=== PATIENT | female | born 1995 | race American Indian/Alaskan Native ===

== ENCOUNTER 2018-02-26 10:38 | Emergency (ER) | payer MEDICAID ==
[2018-02-26 11:18] VITALS: PULSE 86; RESP 18; TEMP 98; O2SAT 98
[2018-02-26 11:18] LABS: BASO % 0.2 % (0.0-2.0); EOS # 0.1 K/uL (0.0-0.7); EOS % 0.9 % (0.0-4.0); HEMOGLOBIN 11.5 g/dL (11.0-16.0); LYMPH # 1.5 K/uL (1.0-4.3); MEAN CELL VOLUME 84.1 fL (81.0-99.0); MEAN CORPUSCULAR HEMOGLOBIN 27.5 pg (27.0-31.0); MEAN CORPUSCULAR HGB CONC 32.7 g/dL (33.0-37.0); MEAN PLATELET VOLUME 8.2 fL (7.2-11.7); MONO # 0.8 K/uL (0.0-0.8); MONO % 10.9 % (0.0-10.0); NEUT # 5.1 K/uL (1.8-7.0); RBC 4.18 Mil/uL (3.80-5.20); RED CELL DISTRIBUTION WIDTH 14.6 % (11.5-14.5); WHITE BLOOD COUNT 7.5 K/uL (4.8-10.8)
--- NOTE | 2018-02-26 11:34 | C.PDOC ---
History Of Present Illness 22 y/o female, , presents to the ER complaining of lower abdominal cramping which has been present since 9 am today. Patient states that her LMP was on 01/13. Patient denies having nausea, vomiting, diarrhea, dysuria, vaginal bleeding , fever, and chills. Time Seen by Provider: 02/26/18 10:43 Chief Complaint (Nursing): Abdominal Pain History Per: Patient History/Exam Limitations: no limitations Onset/Duration Of Symptoms: Hrs Current Symptoms Are (Timing): Still Present Severity: Moderate Past Medical History Reviewed: Historical Data, Nursing Documentation, Vital Signs Vital Signs: Last Vital Signs Temp 98 F 02/26/18 10:46 Pulse 86 02/26/18 10:46 Resp 18 02/26/18 10:46 BP 128/78 02/26/18 10:46 Pulse Ox 98 02/26/18 11:39 - Medical History PMH: No Chronic Diseases Surgical History: No Surg Hx Family History: States: No Known Family Hx - Social History Hx Alcohol Use: No Hx Substance Use: No - Immunization History Hx Tetanus Toxoid Vaccination: No Review Of Systems Except As Marked, All Systems Reviewed And Found Negative. Constitutional: Negative for: Fever, Chills Gastrointestinal: Positive for: Other (abdominal cramping). Negative for: Nausea, Vomiting, Diarrhea Genitourinary: Negative for: Vaginal Bleeding Physical Exam - Physical Exam Appears: Non-toxic, No Acute Distress Skin: Normal Color, Warm, Dry Head: Atraumatic, Normacephalic Eye(s): bilateral: Normal Inspection Nose: Normal Oral Mucosa: Moist Neck: Supple Chest: Symmetrical Cardiovascular: Rhythm Regular Respiratory: Normal Breath Sounds, No Rales, No Rhonchi, No Wheezing Gastrointestinal/Abdominal: Soft, Tenderness (mild suprapubic tenderness), No Guarding, No Rebound Neurological/Psych: Oriented x3, Normal Speech ED Course And Treatment - Laboratory Results Result Diagrams: 02/26/18 11:14 02/26/18 11:14 O2 Sat by Pulse Oximetry: 98 (RA) Pulse Ox Interpretation: Normal Medical Decision Making Medical Decision Making: Assessment: Abdominal Pain in Plan: --Labs --UA --US-Transvaginal 1343 - patient resting comfortably. ultrasound demonstrates no iup. Will discharge home to follow up with ob within 2 days Disposition Counseled Patient/Family Regarding: Studies Performed, Diagnosis, Need For Followup - Disposition Referrals: [facility] [Outside] [facility] [Outside] Disposition: HOME/ ROUTINE Disposition Time: 13:44 Condition: STABLE Additional Instructions: follow up with ob doctor or clnic within 2 days you need a repeat bhcg in 7-8 days your bhcg today is 171 call to make an appointment take medications as prescribed return to ER if symptoms worsens or progress Instructions: Threatened Miscarriage (DC) Forms: [employer] (Vincentian), General Discharge Instructions - Clinical Impression Clinical Impression: Abdominal pain affecting - Scribe Statement The provider has reviewed the documentation as recorded by the Prabhjotibe Silvio Dimas Provider Attestation: All medical record entries made by the Prabhjotibe were at my direction and personally dictated by me. I have reviewed the chart and agree that the record accurately reflects my personal performance of the history, physical exam, medical decision making, and the department course for this patient. I have also personally directed, reviewed, and agree with the discharge instructions and disposition.
[2018-02-26 11:59] LABS: SQUAMOUS EPITHIAL 9 /hpf (0-5); URINE BILIRUBIN NEGATIVE (NEGATIVE); URINE BLOOD 3+ (NEGATIVE); URINE CLARITY Hazy (Clear); URINE COLOR Yellow (YELLOW); URINE GLUCOSE (UA) NORMAL (Normal); URINE LEUKOCYTE ESTERASE TRACE Leu/uL (Negative); URINE PROTEIN NEGATIVE (NEGATIVE)
[2018-02-26 12:03] LABS: ALB/GLOB RATIO 1.3 (1.0-2.1); ALBUMIN 4.5 g/dL (3.5-5.0)
[2018-02-26 12:14] LABS: SPERM URINE FEW /hpf; URINE BACTERIA MOD (<OCC)
[2018-02-26 12:34] LABS: ALT/SGPT 28 U/L (9-52); AST/SGOT 21 U/L (14-36); BLOOD UREA NITROGEN 6 mg/dL (7-17); CALCIUM 9.5 mg/dl (8.6-10.4); GFR AFRICAN-AMERICAN > 60; GFR NON-AFRICAN AMERICAN > 60
--- NOTE | 2018-02-26 13:29 | US ---
PROCEDURE: OB Pelvic Ultrasound HISTORY: abd. cramping COMPARISON: None available. FINDINGS: UTERUS: Tiny intrauterine cystic structure, within the endometrial echo complex, 3 mm. This is out of range for determination age. Questionable early . Followup with serial beta HCG and transvaginal ultrasound is advised. No perigestational hemorrhage identified. No detectable pole. Uterus measures 8.0 x 3.6 x 5.0 cm. No mass CERVIX: Long and closed. No cervical abnormality seen. RIGHT OVARY: Measures 5.1 x 2.7 x 2.8 cm. No mass. Normal flow. Simple cyst, 2.8 x 1.7 x 2.2 cm, likely physiologic. LEFT OVARY: Measures 3.2 x 2.3 x 2.1 cm. No mass. Normal flow. FREE FLUID: Trace right adnexal fluid. OTHER FINDINGS: None. IMPRESSION: Tiny intrauterine cystic structure, possible early intrauterine gestation. Followup with serial beta HCG and transvaginal pelvic ultrasound advised. Incidental 2.8 cm right ovarian simple cyst, likely physiologic.
[2018-02-26 14:10] VITALS: BP 136/72
== END 2018-02-26 14:10 | disposition home or self-care (01) ==
LOC: C.ER 10:38
DX: O26.899 Other specified pregnancy related conditions, unspecified trimester (principal); R10.9 Unspecified abdominal pain

== ENCOUNTER 2018-03-05 15:03 | Emergency (ER) | payer MEDICAID ==
[2018-03-05 15:08] VITALS: BMI 22.6
[2018-03-05 15:11] VITALS: PULSE 92; RESP 18; TEMP 98.2; O2SAT 100
--- NOTE | 2018-03-05 15:42 | C.PDOC ---
History Of Present Illness 22 years old female presents to ED for evaluation of trip and fall and for ultrasound to date . Patient states she was on her way to hospital for her second ultrasound and tripped on uneven pavement. Patient now complains of right foot pain. Patient's LNMP was 6/30. Denies any other physical complaints. Time Seen by Provider: 03/05/18 15:21 Chief Complaint (Nursing): Lower Extremity Problem/Injury History Per: Patient History/Exam Limitations: no limitations Onset/Duration Of Symptoms: Hrs Current Symptoms Are (Timing): Still Present Recent travel outside of the [place]: No - Ankle/Foot Description Of Injury: Fell Past Medical History Reviewed: Historical Data, Nursing Documentation, Vital Signs Vital Signs: Last Vital Signs Temp 98.2 F 03/05/18 18:10 Pulse 92 H 03/05/18 18:10 Resp 18 03/05/18 18:10 BP 116/82 03/05/18 18:10 Pulse Ox 100 03/05/18 18:50 - Medical History PMH: No Chronic Diseases Surgical History: No Surg Hx Family History: States: Unknown Family Hx - Social History Hx Alcohol Use: No Hx Substance Use: No - Immunization History Hx Tetanus Toxoid Vaccination: No Review Of Systems Constitutional: Negative for: Fever, Chills Gastrointestinal: Negative for: Nausea, Vomiting, Abdominal Pain, Diarrhea Genitourinary: Negative for: Vaginal Bleeding, Pelvic Pain Musculoskeletal: Positive for: Foot Pain (Right foot) Skin: Negative for: Rash Neurological: Negative for: Weakness, Numbness Physical Exam - Physical Exam Appears: Non-toxic, No Acute Distress Skin: Warm, Dry, No Rash Head: Atraumatic, Normacephalic Eye(s): bilateral: Normal Inspection, EOMI Oral Mucosa: Moist Neck: Normal ROM, Supple Chest: Symmetrical, No Tenderness Cardiovascular: Rhythm Regular, No Murmur Respiratory: Normal Breath Sounds, No Decreased Breath Sounds, No Rales, No Rhonchi, No Wheezing Gastrointestinal/Abdominal: Bowel Sounds (Active ), Soft, No Tenderness, No Guarding Extremity: Normal ROM, No Tenderness, No Deformity, No Swelling, Other ( Superficial abrasion of right lateral foot and distal medial tibial with mild tenderness to lateral aspect) Neurological/Psych: Oriented x3, Normal Speech Gait: Steady ED Course And Treatment O2 Sat by Pulse Oximetry: 100 (RA) Pulse Ox Interpretation: Normal - Other Rad Ankle X-Ray X-Ray: Viewed By Me, Read By Radiologist Interpretation: PROCEDURE: Right Ankle Radiographs. HISTORY: pain s.p trip and fall. COMPARISON: None available. FINDINGS: BONES: No acute displaced fracture. JOINTS: No dislocation. SOFT TISSUES: Unremarkable. No evidence of radiopaque foreign body. OTHER FINDINGS: None. IMPRESSION: No acute displaced fracture, dislocation, or significant joint effusion identified. If symptoms persist or if there is clinical concern, x-ray follow-up in 7-10 days should be considered. - CT Scan/US Abdomen/Pelvis US Other Rad Studies (CT/US): Read By Radiologist, Radiology Report Reviewed CT/US Interpretation: Indication: Pain status post trip and fall. Comparison: 1st trimester ultrasound performed 02/26/18. Technique: Real-time transabdominal pelvic ultrasound was performed. In addition a transvaginal pelvic ultrasound was necessary to better depict pelvic anatomy. Findings: The uterus measures approximately 6.9 x 3.1 x 3.8 cm. Anteverted. Endometrial stripe measures approximately 3 mm in diameter. No evidence of intrauterine gestational sac. Cervix length measures approximately 2.7 cm. The right ovary measures 2.4 x 1.9 x 2.7 cm and contains 1.1 x 0.8 x 0.6 cm septated/ complicated cyst. The left ovary measures 3.7 x 1.7 x 2.8 cm. Blood flow was demonstrated to both ovaries. Impression: No evidence of intrauterine gestational sac. No evidence of intrauterine gestational sac. If indeed the patient is based on serum beta HCG values, the sonographic findings represent either: Very early IUP; embryonic demise; ectopic gestation. Follow- up with serial quantitative serum beta HCG measurements and post OBGYN follow- up as clinically indicated, since ectopic gestation cannot be excluded based only on sonographic findings. 1.1 cm right ovarian complicated/septated cyst. Medical Decision Making Medical Decision Making: Impression: patient who fell Discuss risk of radiation with patient, and will shield patient to obtain ankle xray. Patient agreed and gave consent to perform Xray. Plan: Administered Tylenol. Ordered X-Ray of right ankle and OB transvaginal US. Prior records reviewed: patient seen in ED 02/26/18 had Bhcg of 171.5 and ultrasound demonstrates no iup Progress: Xray of ankle shows no fracture. US does not demonstrate any gestational sac. I discussed results with the patient. She denies any bleeding or pain. I explain this may demonstrate to early or possible miscarriage. Advise patient to follow up with OB. BHCg was not performed today, and patient did not wish to wait for result. Patient had stable vital signs upon discharge Disposition Counseled Patient/Family Regarding: Diagnosis, Need For Followup - Disposition [facility]] Disposition: HOME/ ROUTINE Disposition Time: 17:43 Condition: STABLE Additional Instructions: It is important that you follow up with your OB in few days to a week for further evaluation Your ultrasound does not show gestational sac, it may be too early to detect Instructions: Ankle Sprain (DC) Forms: [employer] ([place]) - POA Present On Arrival: None - Clinical Impression Clinical Impression: Ankle sprain, - PA / NETWORK SYSTEMS CONSULTANT / Resident Statement MD/DO has reviewed & agrees with the documentation as recorded. - Scribe Statement The provider has reviewed the documentation as recorded by the Prabhjotibjoselo Barrow All medical record entries made by the Livier were at my direction and personally dictated by me. I have reviewed the chart and agree that the record accurately reflects my personal performance of the history, physical exam, medical decision making, and the department course for this patient. I have also personally directed, reviewed, and agree with the discharge instructions and disposition.
--- NOTE | 2018-03-05 16:28 | RAD ---
PROCEDURE: Right Ankle Radiographs. HISTORY: pain s.p trip and fall COMPARISON: None available. FINDINGS: BONES: No acute displaced fracture. JOINTS: No dislocation. SOFT TISSUES: Unremarkable. No evidence of radiopaque foreign body. OTHER FINDINGS: None. IMPRESSION: No acute displaced fracture, dislocation, or significant joint effusion identified. If symptoms persist or if there is clinical concern, x-ray follow-up in 7-10 days should be considered.
--- NOTE | 2018-03-05 17:20 | US ---
Indication: Pain status post trip and fall Comparison: 1st trimester ultrasound performed 02/26/18 Technique: Real-time transabdominal pelvic ultrasound was performed. In addition a transvaginal pelvic ultrasound was necessary to better depict pelvic anatomy. Findings: The uterus measures approximately 6.9 x 3.1 x 3.8 cm. Anteverted. Endometrial stripe measures approximately 3 mm in diameter. No evidence of intrauterine gestational sac. Cervix length measures approximately 2.7 cm. The right ovary measures 2.4 x 1.9 x 2.7 cm and contains 1.1 x 0.8 x 0.6 cm septated/complicated cyst. The left ovary measures 3.7 x 1.7 x 2.8 cm. Blood flow was demonstrated to both ovaries. Impression: No evidence of intrauterine gestational sac. No evidence of intrauterine gestational sac. If indeed the patient is based on serum beta HCG values, the sonographic findings represent either: Very early IUP; embryonic demise; ectopic gestation. Follow-up with serial quantitative serum beta HCG measurements and post OBGYN follow-up as clinically indicated, since ectopic gestation cannot be excluded based only on sonographic findings. 1.1 cm right ovarian complicated/septated cyst.
[2018-03-05 18:11] VITALS: BP 116/82
== END 2018-03-05 18:11 | disposition home or self-care (01) ==
LOC: C.ER 15:03
DX: S93.401A Sprain of unspecified ligament of right ankle, initial encounter (principal); W01.0XXA Fall on same level from slipping, tripping and stumbling without subsequent striking against object, initial encounter; Y92.480 Sidewalk as the place of occurrence of the external cause; O26.891 Other specified pregnancy related conditions, first trimester; Z3A.01 Less than 8 weeks gestation of pregnancy

== ENCOUNTER 2018-03-10 14:30 | Emergency (ER) | payer MEDICAID ==
[2018-03-10 14:35] VITALS: BMI 20.6
[2018-03-10 14:40] VITALS: BP 142/96; PULSE 78; RESP 17; TEMP 98.3; O2SAT 100
--- NOTE | 2018-03-10 15:11 | C.PDOC ---
History Of Present Illness 22 year old female presents to the emergency department for evaluation of a complete . Patient states that her last menstrual period was on January 13, 2018. Patient reports that she was seen here at [facility] on March 05, and followed up with her OB-[facility] today. Patient is here with family, demanding an emergency D&C. Time Seen by Provider: 03/10/18 14:47 Chief Complaint (Nursing): Female Genitourinary History Per: Patient History/Exam Limitations: no limitations Onset/Duration Of Symptoms: Days Current Symptoms Are (Timing): Still Present Quality Of Discomfort: denies: "Pain" Associated Symptoms: denies: Other (abdominal pain, vaginal bleeding) Past Medical History Reviewed: Historical Data, Nursing Documentation, Vital Signs Vital Signs: Last Vital Signs Temp 98.3 F 03/10/18 15:10 Pulse 78 03/10/18 15:10 Resp 17 03/10/18 15:10 BP 142/96 H 03/10/18 15:10 Pulse Ox 100 03/10/18 15:11 - Medical History PMH: No Chronic Diseases Surgical History: No Surg Hx Family History: States: No Known Family Hx - Social History Hx Alcohol Use: No Hx Substance Use: No - Immunization History Hx Tetanus Toxoid Vaccination: No Review Of Systems Except As Marked, All Systems Reviewed And Found Negative. Gastrointestinal: Negative for: Abdominal Pain Genitourinary: Negative for: Vaginal Bleeding Physical Exam - Physical Exam Appears: Non-toxic, No Acute Distress Skin: Warm, Dry Head: Atraumatic, Normacephalic Eye(s): bilateral: Normal Inspection Neck: Normal, Supple Chest: Symmetrical Cardiovascular: Rhythm Regular, No Murmur Respiratory: Normal Breath Sounds, No Rales, No Rhonchi, No Wheezing Gastrointestinal/Abdominal: Normal Exam, Soft, No Tenderness, No Guarding, No Rebound Neurological/Psych: Oriented x3, Normal Speech, Normal Cognition ED Course And Treatment - Laboratory Results Urine POC: Negative (urine POC) O2 Sat by Pulse Oximetry: 100 (RA) Pulse Ox Interpretation: Normal Medical Decision Making Medical Decision Makin03-05-18 Quant HCG 171. Today at outpatient [facility] quant HCG 0. extensively educated and reassured by female nursing staff normal vag US 5 days ago showing no IUP preg neg today (confirming outpatient QHCG done today as "ZERO") no urgent D&C indicated pt not bleeding no abd pain outpatient f/u encouraged. Disposition Doctor Will See Patient In The: Office Counseled Patient/Family Regarding: Studies Performed, Diagnosis - Disposition Referrals: [facility] [Outside] [facility] [Outside] [facility] [Outside] Disposition: HOME/ ROUTINE Disposition Time: 15:10 Condition: GOOD Additional Instructions: test NEGATIVE today Your are NOT : therefore NO chance ectopic Normal pelvic ultrasound 03/05/18 shows NOTHING inside the uterus. No D&C is indicated follow-up with your PMD or OBGYN Clinic as indicated. Instructions: Miscarriage (DC) Forms: [facility] ([place]) - Clinical Impression Clinical Impression: Complete - Scribe Statement The provider has reviewed the documentation as recorded by the Scribe (Milton Butchre) Provider Attestation: All medical record entries made by the Scribe were at my direction and personally dictated by me. I have reviewed the chart and agree that the record accurately reflects my personal performance of the history, physical exam, medical decision making, and the department course for this patient. I have also personally directed, reviewed, and agree with the discharge instructions and disposition.
== END 2018-03-10 15:19 | disposition home or self-care (01) ==
LOC: C.ER 14:30
DX: O03.9 Complete or unspecified spontaneous abortion without complication (principal)